=== PATIENT | male | born 1950 | race Caucasian/White ===

== ENCOUNTER 2017-05-30 13:03 | Day surgery (SDC) | payer OTHER ==
[2017-05-30] VITALS (11 sets, daily range): BP systolic 124–137; BP diastolic 58–64
[~2017-05-30 13:03] MED LIST: ATOR10 PO; CILO50TA PO; CLOP75TA32 PO; FISH1CAP63 PO; MELA10CA2 PO; METF500T6 PO; OMEP40CA37 PO; PIOG30TA70 PO; RABE20TA27 PO
[2017-05-30] MEDS ORDERED: GLYCOPYRROLATE 0.2 MG/ML 5 ML VIAL ONE (14:14)
[2017-05-30] MEDS ORDERED: PROPOFOL 1000 MG/100 ML 100 ML IV ONE (14:15)
[2017-05-30] MEDS ORDERED: PHENYLEPHRINE HCL 10 MG/ML 1ML VIAL IV ONE (14:24)
[2017-05-30] MEDS ORDERED: PRED10TA3 PO (14:30)
[2017-05-30] MEDS ORDERED: NAPH1PAC2 PO (14:30)
[2017-05-30] MEDS ORDERED: CYAN250014 PO (14:30)
[2017-05-30] MEDS ORDERED: MULT-1203 PO (14:30)
[2017-05-30] MEDS ORDERED: LEVO50TA4 PO (14:30)
[2017-05-30] MEDS ORDERED: ROPI0.255 PO (14:30)
[2017-05-30] MEDS ORDERED: NPH,100V11 SQ (14:30)
[2017-05-30] MEDS ORDERED: PANT40TA PO (14:30)
[2017-05-30] MEDS ORDERED: SENN-183 PO (14:30)
[2017-05-30] MEDS ORDERED: THIAM100TB PO (14:30)
[2017-05-30] MEDS ORDERED: AUD IH (14:36)
[2017-05-30] MEDS ORDERED: POLY119P2 PO (14:36)
[2017-05-30] MEDS ORDERED: IPRA0.2S54 IH (14:36)
[2017-05-30] MEDS ORDERED: LINE600I IV (14:36)
[2017-05-30] MEDS ORDERED: MAGN250T10 PO (14:36)
[2017-05-30] MEDS ORDERED: SODI325T PO (14:36)
[2017-05-30] MEDS ORDERED: CHOL200079 PO (14:36)
[2017-05-30] MEDS ORDERED: FLUC200P12 IV (14:36)
[2017-05-30] MEDS ORDERED: INSU100V12 SQ (14:36)
[2017-05-30] MEDS ORDERED: POTA40LI17 PO (14:36)
== END 2017-05-30 16:00 | disposition home or self-care (01) ==
LOC: DAH 13:03
PROVIDERS: ATTEND Internal Medicine Gastroenterology
DX: K29.50 Unspecified chronic gastritis without bleeding (principal); K21.0 Gastro-esophageal reflux disease with esophagitis; D50.9 Iron deficiency anemia, unspecified; I10 Essential (primary) hypertension; Z98.890 Other specified postprocedural states; Z82.49 Family history of ischemic heart disease and other diseases of the circulatory system; Z87.891 Personal history of nicotine dependence; J44.9 Chronic obstructive pulmonary disease, unspecified; E11.9 Type 2 diabetes mellitus without complications; E43 Unspecified severe protein-calorie malnutrition; G93.40 Encephalopathy, unspecified; J18.9 Pneumonia, unspecified organism; I25.10 Atherosclerotic heart disease of native coronary artery without angina pectoris
CPT/HCPCS: 43239; 43249; 82948; 88305; 88312; 93005; J2370; J2704; J3490